=== PATIENT | male | born 1945 | race Caucasian/White ===

== ENCOUNTER → 2021-01-26 00:45 | Outpatient (CLI) | payer MEDICARE, BC, SELFPAY ==
[2021-01-26 18:54] LABS: SARS-CoV-2 RNA PCR Negative
== END ==
PROVIDERS: PCP Internal Medicine; Visit Provider Internal Medicine Gastroenterology
DX: Z01.812 Encounter for preprocedural laboratory examination (principal); Z20.822 Contact with and (suspected) exposure to COVID-19
CPT/HCPCS: C9803; U0003; U0005

== ENCOUNTER 2021-01-30 00:47 | Day surgery (SDC) | payer MEDICARE, BC, SELFPAY ==
[2021-01-21 12:52] VITALS: BMI 29.2
--- NOTE | 2021-01-30 08:42 | WPDANESEPPF ---
Anes - Initial Pre Proc Eval Procedure: Operation Date: 01/30/21 13:30 Proposed Procedures p Esophagogastroduodenoscopy & Colonoscopy - Davey Patrick MD Date/Time: 01/30/21 08:42 Surgeon: Davey Patrick MD Pre Op Diagnosis: hx colon polyps, postive hemosure Patient Data Age: 75 Gender: M Height: 1.8 m Weight: 95 kg Allergies Allergy/AdvReac Type Severity Reaction Status Date / Time No Known Allergies Allergy Verified 01/30/21 11:57 Home Medications Medication Instructions Recorded Confirmed Type amlodipine 5 mg PO DAILY 01/21/21 01/21/21 History aspirin [Adult Low Dose Aspirin] 81 mg PO DAILY 01/21/21 01/21/21 History isosorbide mononitrate 30 mg PO DAILY 01/21/21 01/21/21 History metformin 1,000 mg PO BID 01/21/21 01/21/21 History metoprolol succinate 50 mg PO DAILY 01/21/21 01/21/21 History nitroglycerin 0.4 mg SUBLINGUAL PRN PRN 01/21/21 01/21/21 History pravastatin 40 mg PO HS 01/21/21 01/21/21 History quinapril 20 mg PO DAILY 01/21/21 01/21/21 History sod picosulf 10 mg-magnes 3.5 160 ml PO BID #160 ml 01/21/21 Rx gram-citric 12 gram/160 mL oral solution Patient hx anesthesia problems: none Family hx anesthesia problems: none PMFSH Past Medical History Medical History (Updated 01/30/21 @ 08:47 by Mumtaz Watts MD) CAD (coronary artery disease) Diabetes type 2, controlled GERD (gastroesophageal reflux disease) Hyperlipidemia Hypertension Overweight (BMI 25.0-29.9) Surgical History Surgical History (Updated 01/29/21 @ 11:44 by Lobo Sandoval DO) History of appendectomy History of coronary artery stent placement x3 Hx of CABG x5 Social History Social History Smoking status: Never smoker Alcohol intake: current Drinks per week: 5 Alcohol use details: BEERS Substance use: never Substance use type: does not use Living arrangements: with family Spiritual care concerns: No Anes - Eval Final PreProcedure Day of Procedure 01/30/21 08:42 Patient weight: overweight Heart: regular rate and rhythm Lungs: clear to auscultation and normal air movement Airway: Mallampati scale class II Neurological: alert and oriented Last oral intake: >/= 8 hours ASA classification: III Emergent: no Anesthetic plan: proceed Anesthesia type and monitoring: general GIVS Informed Consent: The patient's anesthetic plan and its attendant risks and benefits were discussed with the patient/family/POA. Questions were solicited and answers provided to the satisfaction of the patient/family/POA.
[2021-01-30 11:58] VITALS: BP 181/83; PULSE 95; RESP 18; TEMP 36.7; O2SAT 98; BMI 27.9
[2021-01-30] MEDS: LACTATED RINGERS 1,000 ML 150 ML IV CONT (12:11)
[2021-01-30 12:15] LABS: Glucose Point of Care 144 (65-105)
--- NOTE | 2021-01-30 13:30 | PM.HPGS ---
History of Present Illness History of Present Illness Consent: Risks, benefits, and alternatives have been discussed and questions answered. Patient agrees to proceed with procedure. Chief complaint: hx colon polyps, postive hemosure Narrative: Mark Yates is a 75 year old male with dark stool and colon polyps with last colonoscopy 5 years ago. Review of Systems Constitutional: Constitutional: Denies headache(s) and Denies weakness Eyes: Eyes: Denies blurry vision ENT: Reports Normal hearing present, Denies headache(s) and Denies neck pain Cardiovascular: Cardiovascular: Denies chest pain and Denies dyspnea Respiratory: Respiratory: Denies dyspnea Gastrointestinal: Gastrointestinal: Reports no additional gastrointestinal complaints Genitourinary: Genitourinary: Denies dysuria Musculoskeletal: Musculoskeletal: Denies neck pain Integumentary/Breasts: Skin/Breast: Denies dry skin Neurologic: Reports Normal hearing present, Denies headache(s) and Denies weakness Psychiatric: Psychiatric: Denies anxiety Endocrine: Endocrine: Denies change in body appearance Hematologic/Lymphatic: Hematologic/Lymphatic: Denies easy bleeding Allergic/Immunologic: Allergic/Immunologic: Denies urticaria PMF Past Medical History Medical History (Updated 01/30/21 @ 13:31 by Davey Patrick MD) CAD (coronary artery disease) Colon polyp Dark stools Diabetes type 2, controlled GERD (gastroesophageal reflux disease) Hyperlipidemia Hypertension Overweight (BMI 25.0-29.9) Surgical History Surgical History (Updated 01/29/21 @ 11:44 by Lobo Sandoval DO) History of appendectomy History of coronary artery stent placement x3 Hx of CABG x5 Social History Social History Smoking status: Never smoker Alcohol intake: current Drinks per week: 5 Alcohol use details: BEERS Substance use: never Substance use type: does not use Living arrangements: with family Spiritual care concerns: No Meds Home Medications and Allergies Home Medications Medication Instructions Recorded Confirmed Type amlodipine 5 mg PO DAILY 01/21/21 01/21/21 History aspirin [Adult Low Dose Aspirin] 81 mg PO DAILY 01/21/21 01/21/21 History isosorbide mononitrate 30 mg PO DAILY 01/21/21 01/21/21 History metformin 1,000 mg PO BID 01/21/21 01/21/21 History metoprolol succinate 50 mg PO DAILY 01/21/21 01/21/21 History nitroglycerin 0.4 mg SUBLINGUAL PRN PRN 01/21/21 01/21/21 History pravastatin 40 mg PO HS 01/21/21 01/21/21 History quinapril 20 mg PO DAILY 01/21/21 01/21/21 History sod picosulf 10 mg-magnes 3.5 160 ml PO BID #160 ml 01/21/21 Rx gram-citric 12 gram/160 mL oral solution Allergies Allergy/AdvReac Type Severity Reaction Status Date / Time No Known Allergies Allergy Verified 01/30/21 11:57 Vital Signs Vital Signs - 24 hr 01/30/21 11:58 Temperature 98.1 F Pulse Rate 95 Respiratory Rate 18 Blood Pressure 181/83 H Pulse Oximetry 98 Exam Const: General: comfortable and no acute distress HENMT: General nose exam: Normal nares present Eyes: General: appearance normal, both eyes and all related structures Neck: Neck: no JVD Resp: Auscultation: clear to auscultation bilaterally Cardio: Rate: regular rate Rhythm: regular rhythm GI: Inspection: non-distended GI Palp: Yes Soft to palpation Skin: General skin exam: normal color Neuro: General: gait normal Speech: normal speech Extrem: General: normal to inspection Psych: Mental Status: mental status grossly normal Assessment and Plan Assessment and plan (1) Colon polyp: Code(s): K63.5 - Polyp of colon Status: Acute Assessment and Plan: due for colonoscopy (2) Dark stools: Code(s): R19.5 - Other fecal abnormalities Status: Acute Assessment and Plan: using ppi daily now
[2021-01-30] MEDS: BENZOCAINE (*SP) 60 ML SPRAY CAN (HURRICAINE) 1 SPRAY MUCOUS MEM (13:37)
[2021-01-30 14:11] VITALS: BP 125/80; PULSE 105; RESP 20; O2SAT 97
[2021-01-30 14:22] VITALS: BP 142/87; PULSE 97; RESP 15; O2SAT 98
[2021-01-30 14:30] VITALS: BP 144/85; PULSE 86; RESP 18; O2SAT 96
== END 2021-01-30 14:42 | disposition home or self-care (01) ==
PROVIDERS: PCP Internal Medicine; Visit Provider Internal Medicine Gastroenterology
PROC: 0DJ08ZZ Inspection of Upper Intestinal Tract, Via Natural or Artificial Opening Endoscopic (ICD-10-PCS; CPT 43235; principal; 2021-01-30 13:30)
DX: Z12.11 Encounter for screening for malignant neoplasm of colon (principal); D12.2 Benign neoplasm of ascending colon; D12.4 Benign neoplasm of descending colon; K64.8 Other hemorrhoids; K31.7 Polyp of stomach and duodenum; R19.5 Other fecal abnormalities; K44.9 Diaphragmatic hernia without obstruction or gangrene; K21.9 Gastro-esophageal reflux disease without esophagitis; I25.10 Atherosclerotic heart disease of native coronary artery without angina pectoris; E11.9 Type 2 diabetes mellitus without complications; I10 Essential (primary) hypertension; E78.5 Hyperlipidemia, unspecified; Z79.84 Long term (current) use of oral hypoglycemic drugs; Z79.82 Long term (current) use of aspirin; Z95.5 Presence of coronary angioplasty implant and graft; Z95.1 Presence of aortocoronary bypass graft
CPT/HCPCS: 45385; 43239; 82948; 88305; J2001; J2704; J7120

== ENCOUNTER 2024-05-26 09:30 | Outpatient (RCR) | payer MEDICARE, BC, SELFPAY ==
--- NOTE | 2024-04-28 11:41 | OPREHPOC ---
Outpatient Therapy Plan of Care This is a Multidisciplinary Plan of Care that may contain components documented by all disciplines (PT, OT, and ST.) PT Problem 1 PT Problem #1 Knowledge Deficit PT Goal 1 Goal [place] with HEP Target Visit 4 PT Problem 2 PT Problem #2 Impaired Range of Motion PT Goal 1 Goal Demonstrate 40 degrees betsy hip abduction indicating reduced capsular restriction Target Visit 8 PT Goal 2 Goal Improve betsy ankle dorsiflexion to 10 degrees to allow for terminal stance Target Visit 8 PT Problem 3 PT Problem #3 Impaired Strength PT Goal 1 Goal Improve betsy hip abduction strength to 4/5 to improve lateral pelvic stability with gait and ADLs Target Visit 8 PT Problem 4 PT Problem #4 Impaired Balance PT Goal 1 Goal Patient will demonstrate ability to perform 30 seconds of dynamic activity on unstable surface with no LOB or increased pain Target Visit 8 PT Goal 2 Goal Demonstrate ability to maintain single leg stance for 30 seconds betsy for glute activation and core stability Target Visit 8
--- NOTE | 2024-04-28 11:41 | PTOPEVAL1 ---
Assessment and note entered by Timoteo Mullins, PT Evaluation Information Assessment Status Evaluation Diagnosis Gait abnormality, low back pain Onset Chronic Subjective Information Reports that he has had a lot of trouble transitioning to lifting. He is mostly having low back pain today. Pain is across the low back but never into the legs. Denies any falls. Reports that he has not been sleeping due to a C-PAP but has never really slept well. He cannot sleep on his back. Walking does not hurt his back and he used to spend a lot of time on the treadmill. Pain is better in the morning and worse with activity throughout the day. Takes Advil as needed. Reported Pain Level Pain Score 2: Self Report Assessment PT Clinical Summary Patient presents with soft tissue restriction in hip rotation and posterior chain. Joint mobility feels good this date in hips and knees. Patient will benefit from skilled therapy to address mobility restrictions and foot progressions to improve hip mobility and disassociate movement from lumbar mobility. Progress to hip strength and balance. Plan of Care Interventions Electrical Stimulation,Gait Training,Hot Pack/Cold Pack,Manual Therapy,Mechanical Traction,Neuro Re- education,Therapeutic Activities,Therapeutic Exercise PT Services Indicated Yes Treatment Frequency and 2x/week for 8 visits Duration These treatments will address the objective and functional deficits as defined above. The patient will be advanced safely and appropriately in order for the patient to progress towards his/her prior level of function. Additional exercises will be introduced and as well as a comprehensive home exercise program upon discharge, if needed, ?to ensure carryover of functional gains achieved in the clinic. This treatment plan has been reviewed and agreement upon by the patient.
--- NOTE | 2024-06-09 15:31 | PTOPDC ---
Assessment and note entered by Mary Snell, PT Evaluation Information Assessment Status Discharge - Pt Not Present Diagnosis Gait abnormality, low back pain Onset Chronic Assessment PT Clinical Summary Pt attended 6 visits of physical therapy including evaluation. He cancelled his reevaluation and did not wish to reschedule. He did not give a reason. Unknown if goals were met as reevaluation was not performed. Pt will be discharged at this time due to nonattendance. Plan of Care PT Services Indicated No
== END 2024-06-09 16:09 | disposition home or self-care (01) ==
LOC: ANHHIPT 09:30
PROVIDERS: PCP Physician Assistant Medical; Visit Provider Physician Assistant Medical
DX: R26.89 Other abnormalities of gait and mobility (principal)
CPT/HCPCS: 97110; 97112; 97116; 97140; 97161; 97530